=== PATIENT | female | born 1985 | race Caucasian/White ===

== ENCOUNTER 2018-04-28 14:20 | Emergency (ER) | payer OTHER, SELFPAY ==
[2018-04-28 14:21] VITALS: BP 118/65; PULSE 78; RESP 16; TEMP 36.6; O2SAT 100
[2018-04-28 15:22] LABS: Mucous, Urine 0 SEEN /hpf (<or=2+); Red Blood Cells-Urine 0 SEEN /hpf (0-5); White Blood Cells 0 SEEN /hpf (0-5)
[2018-04-28 15:25] LABS: Color, Urine Yellow (Yellow); Glucose, Dipstick Normal (Normal); Ketone-Dipstick Negative (Negative); Leukocyte Esterase-Dipstick Negative /ul (Negative); Nitrite-Dipstick Negative (Negative); Occult Blood-Urine Negative /ul (Negative); Protein-Dipstick 15 mg/dl (Negative); Urine Bilirubin Dipstick Negative (Negative); Urine Clarity Clear (Clear); Urine Urobilinogen Normal (Normal)
[2018-04-28 15:39] LABS: Bacteria RARE /hpf (None Seen); Squamous Epithelial Cells - UA 0-5 SEEN /hpf (5-10)
--- NOTE | 2018-04-28 16:03 | US_ITS ---
STUDY: FIRST TRIMESTER OBSTETRICAL ULTRASOUND REASON FOR EXAM: Female, 32 years old. Lower pelvic pain LMP: March 08, 2018. TECHNIQUE: Transabdominal and Transvaginal TECHNICAL QUALITY: Adequate. PRIOR ULTRASOUND: None. FINDINGS: There is visualization of a single gestational sac in a normal intrauterine position. The mean sac diameter (MSD) measures 2.8 cm, indicating an estimated gestational age (EGA) of 8 weeks, 1 days. The gestational sac shape is within normal limits. There is a visualized yolk sac. The yolk sac measures 0.4 cm. The placenta is non-visualized. There is visualization of a live embryo. The crown-rump length (CRL) measures 1.3 cm, indicating an estimated gestational age (EGA) of 7 weeks, 4 days. There is demonstrated cardiac activity with a heart rate of 149 bpm. The estimated gestation age (EGA) by LMP is 7 weeks, 2 days. The estimated date of delivery (RANI) by LMP is December 13, 2018. The estimated gestation age (EGA) by US is 7 weeks, 6 days. The estimated date of delivery (RANI) by US is December 09, 2018. The uterus measures 8.8 x 6.1 x 4.5 cm. There is 1.2 cm hypoechoic region consistent with subchorionic hemorrhage. There is no demonstrated uterine fibroid. The cervix is closed. The right ovary measures 4.8 x 3.6 x 3.1 cm. There is 2.9 cm right ovarian cyst. There is no visualized right adnexal mass or complex lesion. The left ovary is nonvisualized. There is no fluid in the cul de sac. US/Transvaginal w/Preg US IMPRESSION: Single intrauterine gestation 7 weeks 6 days with estimated due date December 09, 2018. Right adnexal cyst. Electronically Signed: Bryce Bal MD at 18:09 EST , Service support ,
[2018-04-28 16:46] LABS: Hematocrit 40.4 % (37-47); Hemoglobin 13.9 g/dl (12.0-15.0)
--- NOTE | 2018-04-28 18:30 | ED.VISSUMM ---
- ER Visit Summary Date of Service: 04/28/18 Chief Complaint: Pelvic pain History of Present Illness: The patient is a 32 F who is presently 7 weeks . She states that over this weekend she did have occasional pelvic pain that was short-lived. This morning she had about 2 hours of severe pelvic pain. She denies any bleeding. She notes no radiation of pain. She notes last week she had a brief URI. No diarrhea or constipation. No fevers. No leakage of fluid. No significant discharge. Physical Examination: Afebrile vital signs are stable Gen: Well-nourished well-developed Head: Normocephalic atraumatic Eyes: Perrl EOMI ENT: TMs clear no rhinorrhea moist mucous membranes Neck: Supple no lymphadenopathy no JVD nontender CVS: Regular rate rhythm no murmurs normal S1-S2 Respiratory: No distress clear to auscultation bilaterally chest nontender Abdomen: Soft nontender nondistended normal bowel sounds no masses Back: Nontender Extremity: Nontender no edema Skin: Normal color no rash Neuro: alert orientated ?3 CN II-XII intact normal strength sensation reflexes gait cerebellar Psych: Normal affect normal mood Test Results: Hemoglobin 13.9. Quantitative hCG 94,000. AB Rh is a negative. Urinalysis is normal. Pelvic ultrasound single live intrauterine . There is a right ovarian cyst 2.9 cm. Emergency Department Course and Treatment: Patient will be discharged home to follow with her FIELD SERVICE SPECIALIST. She has an appointment tomorrow. Return if worsening or concerns. She is to rest. Impression: 1. First trimester pelvic pain This note was generated with [employer] dictation software. It may contain incorrect words, spelling, and punctuation that were not noted in review of the chart prior to signing ED Disposition - Plan for ED Patient: Disposition: Home or Assisted Living Chief Complaint: Abd Pain Instructions: : Your First Trimester Changes Referrals: Radha Naranjo MD [STAFF PHYSICIAN] - Keep Ramon appointment
[2018-04-28 18:41] VITALS: BP 116/83
== END 2018-04-28 18:41 | disposition home or self-care (01) ==
PROVIDERS: Emergency Provider Emergency Medicine; Family Provider Family Medicine; PCP Family Medicine
DX: O26.891 Other specified pregnancy related conditions, first trimester (principal); R10.2 Pelvic and perineal pain; O34.81 Maternal care for other abnormalities of pelvic organs, first trimester; N83.201 Unspecified ovarian cyst, right side; Z3A.01 Less than 8 weeks gestation of pregnancy
CPT/HCPCS: 76817; 81001; 84702; 85014; 85018; 86900; 99283; A4216

== ENCOUNTER → 2018-05-08 15:17 | Outpatient (CLI) | payer OTHER, SELFPAY ==
[2018-05-08 19:01] LABS: Chlamydia Trachomatis by PCR Negative (Negative); Neisserai gonorrhoeae by PCR Negative (Negative); Probe Check PASS; Sample Adequacy Control PASS; Specimen Processing Control PASS
[2018-05-15 08:32] LABS: HPV Reflexed? NOT INDICATED
== END ==
PROVIDERS: Visit Provider Obstetrics & Gynecology
DX: Z12.4 Encounter for screening for malignant neoplasm of cervix (principal)
CPT/HCPCS: 87491; 87591; 87624; 88175; G0145

== ENCOUNTER → 2018-05-29 14:25 | Outpatient (CLI) | payer OTHER, SELFPAY ==
[2018-05-29 15:38] LABS: Color, Urine Yellow (Yellow); Glucose, Dipstick Normal (Normal); Ketone-Dipstick Negative (Negative); Leukocyte Esterase-Dipstick Negative /ul (Negative); Nitrite-Dipstick Negative (Negative); Occult Blood-Urine Negative /ul (Negative); Protein-Dipstick Negative (Negative); Urine Bilirubin Dipstick Negative (Negative); Urine Clarity Clear (Clear); Urine Urobilinogen Normal (Normal)
[2018-05-29 15:41] LABS: Absolute Lymphocyte Count 1.15 X10^3/ul (0.83-4.51); Hemoglobin 12.6 g/dl (12.0-15.0); Lymphocyte # 1.15 X10^3/ul (4.0); Lymphocyte % 17.1 % (19-41); Mean Corp Hgb Conc 34.1 g/gl (32-36); Mean Corpuscular Hgb 33.1 pg (27.0-32.0); Mean Corpuscular Volume 97.1 fL (81-99); Mean Platelet Vol. 11.7 fl (6.2-12.0); Monocyte% 8.9 % (0-10); Neutrophil # 4.97 X10^3/uL (2.7-7.7); Neutrophil % 73.9 % (47-70); POSITIVE COUNT NO; POSITIVE DIFFERENTIAL NO; POSITIVE MORPHOLOGY NO; Platelet Count 233 K/mm3 (150-450); RBC Distribution Width CV 12.9 % (11.6-14.6); RBC Distribution Width SD 45.3 fl (35.1-43.9); Red Blood Count 3.81 M/mm3 (4.2-5.4); White Blood Count 6.7 K/mm3 (4.4-11.0)
[2018-05-29 16:04] LABS: Thyroid Stim Hormone (TSH) 2.28 uIU/mL (0.358-3.74)
[2018-05-29 16:40] LABS: HIV - WCH Non-Reactive (Nonreactive)
[2018-05-30 02:33] LABS: Prenatal RPR NONREACTIVE (NONREACTIVE)
[2018-06-01 09:58] LABS: HEPATITIS B SURFACE AG Negative (Negative); Hep C Antibodies <0.1 s/co ratio (0.0-0.9)
== END ==
PROVIDERS: Visit Provider Obstetrics & Gynecology
DX: Z34.81 Encounter for supervision of other normal pregnancy, first trimester (principal)
CPT/HCPCS: 36415; 81002; 84443; 85025; 86703; 86762; 86803; 87340

== ENCOUNTER → 2018-09-18 13:34 | Outpatient (CLI) | payer OTHER, SELFPAY ==
[2018-09-18 14:51] LABS: Glucose Challenge Gest 1H 50g 133 mg/dL (70-140)
[2018-09-18 14:58] LABS: Hematocrit 37.6 % (37-47); Hemoglobin 12.2 g/dl (12.0-15.0); Mean Corp Hgb Conc 32.4 g/gl (32-36); Mean Corpuscular Hgb 33.6 pg (27.0-32.0); Mean Corpuscular Volume 103.6 fL (81-99); Mean Platelet Vol. 11.8 fl (6.2-12.0); Platelet Count 243 K/mm3 (150-450); RBC Distribution Width SD 48.1 fl (35.1-43.9); Red Blood Count 3.63 M/mm3 (4.2-5.4); Scan Indicated on CBC? Y/N NO; White Blood Count 8.3 K/mm3 (4.4-11.0)
== END ==
PROVIDERS: Visit Provider Obstetrics & Gynecology
DX: Z34.83 Encounter for supervision of other normal pregnancy, third trimester (principal)
CPT/HCPCS: 36415; 82950; 85027; 86850

== ENCOUNTER → 2018-11-19 13:34 | Outpatient (CLI) | payer OTHER, SELFPAY | PROVIDERS: Visit Provider Obstetrics & Gynecology | DX: Z36.85 Encounter for antenatal screening for Streptococcus B (principal) | CPT/HCPCS: 87081 ==

== ENCOUNTER 2018-12-14 06:10 | Inpatient (IN) | payer SELFPAY, OTHER ==
[2018-12-14 06:45] VITALS: BMI 24.2
[2018-12-14] MEDS: 0.9% Saline Lock 10 ML Syringe IV (07:20)
[2018-12-14 07:44] LABS: Absolute Lymphocyte Count 1.01 X10^3/ul (0.83-4.51); Absolute Neutrophil Count 9.2 X10^3/uL (2.0-7.7); Basophil# 0.02 X10^3/uL; Basophil% 0.2 % (0-1); Eosinophil# 0.07 X10^3/uL; Eosinophils% 0.6 % (0-5); Hematocrit 36.2 % (37-47); Hemoglobin 12.4 g/dl (12.0-15.0); Lymphocyte # 1.01 X10^3/ul (4.0); Lymphocyte % 8.9 % (19-41); Mean Corp Hgb Conc 34.3 g/gl (32-36); Mean Corpuscular Hgb 33.9 pg (27.0-32.0); Mean Corpuscular Volume 98.9 fL (81-99); Mean Platelet Vol. 13.2 fl (6.2-12.0); Monocyte# 0.97 X10^3/uL; Monocyte% 8.6 % (0-10); Neutrophil # 9.19 X10^3/uL (2.7-7.7); Neutrophil % 81.3 % (47-70); Platelet Count 182 K/mm3 (150-450); RBC Distribution Width CV 13.5 % (11.6-14.6); RBC Distribution Width SD 48.6 fl (35.1-43.9); Red Blood Count 3.66 M/mm3 (4.2-5.4); White Blood Count 11.3 K/mm3 (4.4-11.0)
[2018-12-14 07:46] LABS: Differential Indicated SCAN CRITERIA MET; POSITIVE COUNT NO; POSITIVE DIFFERENTIAL NO; POSITIVE MORPHOLOGY YES
[2018-12-14] MEDS: Lactated Ringers 1,000 ML 50 ML IV (15:00)
--- NOTE | 2018-12-14 16:12 | PCM.OPRPT ---
Problem List (1) SROM (spontaneous rupture of membranes) Status: Acute (2) Rh negative state in antepartum period Status: Acute Vaginal Delivery Maternal Presentation: Active Labor, Spontaneous Rupture of Membranes 40w5d srom Amniotic Membrane Rupture Type: Spontaneous at home Amniotic Fluid Description: Clear Final RANI: 12/09/18 Gestational age: 40 Weeks and 6 Days Date of Procedure: 12/14/18 Pre-Operative Diagnosis: srom Post-Operative Diagnosis: same Surgery/ Procedure Performed: Spontaneous Vaginal Delivery Type of Anesthesia: None Description of Procedure: Patient began pushing and delivered the head in the NIKOLAS presentation. The head was delivered atraumatically and a loose nuchal cord ?1 was identified and easily reduced over the 's head. The anterior and posterior shoulders delivered without complication followed by the rest of the infant and the infant was placed on the maternal abdomen. Delayed cord clamping was employed for approximately 60 seconds. Cord was clamped and cut and gentle traction was applied to the cord and the placenta delivered spontaneously immediately following it was noted to be intact with three-vessel cord. The perineum and vagina were inspected and 2nd degree perineal laceration was injected with lidocaine and repiared in the usual fashion. EBL was 300 cc. Patient and infant tolerated delivery well. Presentation: NIKOLAS Placental Delivery Description: Spontaneous Placenta Disposition: [facility] Cord Vessel Description: 3 Vessels Cord Entanglement: Around neck x 1, loose Estimated Blood Loss: 300 Infant A gender: Male Episiotomy Description: None Laceration: Perineal Extension/lac, 2nd degree Medications given after delivery: IV Pitocin Complications: None
[2018-12-14] MEDS: Oxytocin 30 units/NS 500 ml 30 UNITS/500 ML IV.SOLN 334 UNITS IV (17:14)
[2018-12-14] MEDS: Oxytocin 30 units/NS 500 ml 30 UNITS/500 ML IV.SOLN 167 UNITS IV (17:44)
[2018-12-15 00:10] VITALS: BP 107/73; PULSE 63; RESP 17; TEMP 36.5
[2018-12-15 03:55] VITALS: BP 114/70; PULSE 64; RESP 17; TEMP 36.2
--- NOTE | 2018-12-15 06:40 | DCINST_ITS ---
Discharge Diet: No Restrictions Discharge Activity: Return to Normal Activity, May not drive while taking narcotic pain medications., May Shower May resume sexual activity in: 4-6 weeks Call your doctor if your incision/area has: Continuous Slow Oozing, Sudden Increased Bleeding, Increased Pain/ Swelling, Increased Redness, Foul Smelling Discharge Additional Instructions: If you experience any of the following, contact your healthcare provider. * Bleeding that soaks a pad every hour for 2 hours * Fever 100.4 or higher * Unrelieved incision or abdominal pain * Swelling, redness, discharge or bleeding from your incision or episiotomy site * Your incision begins to separate * Problems urinating (including inability to urinate or burning while urinating). * Visual changes * Severe headache * Flu-like symptoms * Pain or redness in one of both of your breasts * Pain, warmth, tenderness or swelling in your legs, especially the calf area * Frequent nausea and vomiting * Symptoms of depression or anxiety If you experience any of the following, call 911 or go to the nearest Emergency Room. * Chest pain * Problems breathing * Seizure activity * Partial or complete paralysis of a body part, slurred speech, weakness or drooping of the face, or a sudden inability to walk or hold your balance Allergies/Adverse Reactions: Allergies No Known Allergies Allergy (Verified 04/28/18 14:23) Medications to take at Discharge Vits [Prenatabs FA] 1 tab PO DAILY 12/14/18 Please Follow Up With: Chastity Oconnor MD - [phone] When: Call to make an appointment with your doctor in 6 weeks. If you had elevated Blood pressure or 4th degree laceration you will need to be seen in 2 weeks. Test Results: Test results from this visit will be discussed in further detail at your follow- up appointment, if applicable.
--- NOTE | 2018-12-15 06:40 | PCM.DCVAG ---
Discharge Diet: No Restrictions Discharge Activity: Return to Normal Activity, May not drive while taking narcotic pain medications., May Shower May resume sexual activity in: 4-6 weeks Call your doctor if your incision/area has: Continuous Slow Oozing, Sudden Increased Bleeding, Increased Pain/ Swelling, Increased Redness, Foul Smelling Discharge Additional Instructions: If you experience any of the following, contact your healthcare provider. Bleeding that soaks a pad every hour for 2 hours Fever 100.4 or higher Unrelieved incision or abdominal pain Swelling, redness, discharge or bleeding from your incision or episiotomy site Your incision begins to separate Problems urinating (including inability to urinate or burning while urinating). Visual changes Severe headache Flu-like symptoms Pain or redness in one of both of your breasts Pain, warmth, tenderness or swelling in your legs, especially the calf area Frequent nausea and vomiting Symptoms of depression or anxiety If you experience any of the following, call 911 or go to the nearest Emergency Room. Chest pain Problems breathing Seizure activity Partial or complete paralysis of a body part, slurred speech, weakness or drooping of the face, or a sudden inability to walk or hold your balance Allergies/Adverse Reactions: Allergies No Known Allergies Allergy (Verified 04/28/18 14:23) Medications to take at Discharge Vits [Prenatabs FA] 1 tab PO DAILY 12/14/18 Please Follow Up With: Chastity Oconnor MD - [phone] When: Call to make an appointment with your doctor in 6 weeks. If you had elevated Blood pressure or 4th degree laceration you will need to be seen in 2 weeks. Test Results: Test results from this visit will be discussed in further detail at your follow-up appointment, if applicable.
--- NOTE | 2018-12-15 06:41 | PCM.PN.OB ---
Patient Problems: Active and Suspected Problems SROM (spontaneous rupture of membranes) (Acute) Rh negative state in antepartum period (Acute) Subjective: doing well no complaints pain controlled no CP SOB N V ambulating well tolerating po lochia moderate, going well - Physical Exam General: Alert, Oriented x3 Vital Signs Temp Pulse Resp BP 97.7 F L 63 17 107/73 12/15/18 00:10 12/15/18 00:10 12/15/18 00:10 12/15/18 00:10 Oxygen Delivery Method Room Air Weight: 141 lb Body Mass Index (BMI) 24.2 Intake and Output for Last 24 Hours 12/13/18 12/14/18 12/15/18 23:59 23:59 23:59 Output Total 225 / 225 Balance -225 / -225 Laboratory Tests Past 24 Hrs 12/14/18 12/14/18 07:20 07:20 WBC 11.3 H RBC 3.66 L Hgb 12.4 Hct 36.2 L MCV 98.9 MCH 33.9 H MCHC 34.3 RDW 13.5 RDW Differential 48.6 H Plt Count 182 MPV 13.2 H Immature Gran % (Auto) 0.400 Neut % (Auto) 81.3 H Lymph % (Auto) 8.9 L Mcdonald % (Auto) 8.6 Eos % (Auto) 0.6 Baso % (Auto) 0.2 Absolute Neuts (auto) 9.2 H Absolute Lymphs (auto) 1.01 Total Counted Not Reportable Blood Type A NEGATIVE Antibody Screen NEGATIVE Medical Necessity - Tobacco Use Smoking Status: Never smoker Assessment/Plan All Active Problems SROM (spontaneous rupture of membranes) (Acute) Rh negative state in antepartum period (Acute) s/p PPD # 1 1. routine post delivery care 2. breast feeding- support given 3. rh negative
[2018-12-15 08:11] VITALS: BP 110/69; PULSE 64; RESP 16; TEMP 36.6
--- NOTE | 2018-12-15 08:11 | NURSING ---
pt unable to empty bladder completely per pt report. upon fundal check bladder appeared distended. pt straight catheterized for 1550 ml concentrated urine. abdomen no longer distended and fundus U/3
[2018-12-15 11:38] VITALS: BP 100/64; PULSE 87; RESP 16; TEMP 36.3; O2SAT 97
[2018-12-15 14:00] VITALS: BP 100/64; PULSE 87; RESP 16; TEMP 36.3; O2SAT 97
[2018-12-15] MEDS: Acetaminophen 500 MG Tablet 1000 MG PO (18:14)
--- NOTE | 2018-12-15 18:18 | NURSING ---
bladder scanned for 864 cc. pt up to the bathroom,voided 200cc.
--- NOTE | 2018-12-15 19:09 | NURSING ---
pt str cath for 800cc, pt tolerated this well.
[2018-12-15 19:25] VITALS: BP 95/63; PULSE 78; RESP 17; TEMP 36.2
[2018-12-16 01:35] VITALS: BP 100/65; PULSE 65; RESP 16; TEMP 36.1
--- NOTE | 2018-12-16 08:15 | PCM.PN.OB ---
Patient Problems: Active and Suspected Problems SROM (spontaneous rupture of membranes) (Acute) Rh negative state in antepartum period (Acute) Subjective: Patient without complaints. Minimal vaginal bleeding reported. Breast-feeding going well. - Physical Exam Vital Signs Temp Pulse Resp BP Pulse Ox 96.9 F L 65 16 100/65 97 12/16/18 01:35 12/16/18 01:35 12/16/18 01:35 12/16/18 01:35 12/15/18 14:00 Oxygen Delivery Method Room Air Weight: 141 lb Body Mass Index (BMI) 24.2 Intake and Output for Last 24 Hours 12/14/18 12/15/18 12/16/18 23:59 23:59 23:59 Output Total 225 / 225 200 / 200 800 / 800 Balance -225 / -225 -200 / -200 -800 / -800 Medical Necessity - Tobacco Use Smoking Status: Never smoker Assessment/Plan All Active Problems SROM (spontaneous rupture of membranes) (Acute) Rh negative state in antepartum period (Acute) Doing well day #2 status post routine spontaneous vaginal delivery. Will release to home with routine instructions.
--- NOTE | 2018-12-16 08:17 | DCINST_ITS ---
Discharge Diet: No Restrictions Discharge Activity: Return to Normal Activity, May not drive while taking narcotic pain medications., May Shower May resume sexual activity in: 4-6 weeks Additional Activity Instructions:: Nothing in the vagina for 4-6 weeks. You may return to work/school in 6 weeks. Call your doctor if your incision/area has: Continuous Slow Oozing, Sudden Increased Bleeding, Increased Pain/ Swelling, Increased Redness, Foul Smelling Discharge Call your doctor if you observe: Inability to urinate, Inability to have a bowel movement, Using more than one pad per hour Additional Instructions: If you experience any of the following, contact your healthcare provider. * Bleeding that soaks a pad every hour for 2 hours * Fever 100.4 or higher * Unrelieved incision or abdominal pain * Swelling, redness, discharge or bleeding from your incision or episiotomy site * Your incision begins to separate * Problems urinating (including inability to urinate or burning while ur inating). * Visual changes * Severe headache * Flu-like symptoms * Pain or redness in one of both of your breasts * Pain, warmth, tenderness or swelling in your legs, especially the calf area * Frequent nausea and vomiting * Symptoms of depression or anxiety If you experience any of the following, call 911 or go to the nearest Emergency Room. * Chest pain * Problems breathing * Seizure activity * Partial or complete paralysis of a body part, slurred speech, weakness or drooping of the face, or a sudden inability to walk or hold your balance Allergies/Adverse Reactions: Allergies No Known Allergies Allergy (Verified 04/28/18 14:23) Medications to take at Discharge Vits [Prenatabs FA] 1 tab PO DAILY 12/14/18 Please Follow Up With: Perm Heredia MD - [phone] When: Call to make an appointment with your doctor in 6 weeks. Test Results: Test results from this visit will be discussed in further detail at your follow- up appointment, if applicable.
--- NOTE | 2018-12-16 08:17 | PCM.DCVAG ---
Discharge Diet: No Restrictions Discharge Activity: Return to Normal Activity, May not drive while taking narcotic pain medications., May Shower May resume sexual activity in: 4-6 weeks Additional Activity Instructions:: Nothing in the vagina for 4-6 weeks. You may return to work/school in 6 weeks. Call your doctor if your incision/area has: Continuous Slow Oozing, Sudden Increased Bleeding, Increased Pain/ Swelling, Increased Redness, Foul Smelling Discharge Call your doctor if you observe: Inability to urinate, Inability to have a bowel movement, Using more than one pad per hour Additional Instructions: If you experience any of the following, contact your healthcare provider. Bleeding that soaks a pad every hour for 2 hours Fever 100.4 or higher Unrelieved incision or abdominal pain Swelling, redness, discharge or bleeding from your incision or episiotomy site Your incision begins to separate Problems urinating (including inability to urinate or burning while urinating). Visual changes Severe headache Flu-like symptoms Pain or redness in one of both of your breasts Pain, warmth, tenderness or swelling in your legs, especially the calf area Frequent nausea and vomiting Symptoms of depression or anxiety If you experience any of the following, call 911 or go to the nearest Emergency Room. Chest pain Problems breathing Seizure activity Partial or complete paralysis of a body part, slurred speech, weakness or drooping of the face, or a sudden inability to walk or hold your balance Allergies/Adverse Reactions: Allergies No Known Allergies Allergy (Verified 04/28/18 14:23) Medications to take at Discharge Vits [Prenatabs FA] 1 tab PO DAILY 12/14/18 Please Follow Up With: Prem Heredia MD - [phone] When: Call to make an appointment with your doctor in 6 weeks. Test Results: Test results from this visit will be discussed in further detail at your follow-up appointment, if applicable.
[2018-12-16 08:25] VITALS: BP 107/69; PULSE 65; RESP 16; TEMP 36.3; O2SAT 98
[2018-12-16 08:49] VITALS: BP 107/69; PULSE 65; RESP 16; TEMP 36.3; O2SAT 98
[2018-12-16] MEDS: Naproxen 250 MG Tablet 500 MG PO (10:00)
== END 2018-12-16 10:45 | disposition home or self-care (01) | DRG 806 ==
PROVIDERS: Admitting Provider Obstetrics & Gynecology; Referring Provider Obstetrics & Gynecology; Visit Provider Obstetrics & Gynecology
DX: O42.02 Full-term premature rupture of membranes, onset of labor within 24 hours of rupture (principal); O36.0130 Maternal care for anti-D [Rh] antibodies, third trimester, not applicable or unspecified; Z37.0 Single live birth; O70.1 Second degree perineal laceration during delivery; O69.81X0 Labor and delivery complicated by cord around neck, without compression, not applicable or unspecified; Z3A.40 40 weeks gestation of pregnancy
CPT/HCPCS: 59050; 85025; 86850; 86900; 99218; J7120; A4216; G0378

== ENCOUNTER → 2018-12-26 11:17 | Outpatient (CLI) | payer OTHER, SELFPAY ==
[2018-12-14 06:45] VITALS: BMI 24.2
== END ==
PROVIDERS: Visit Provider Obstetrics & Gynecology
DX: N39.0 Urinary tract infection, site not specified (principal)
CPT/HCPCS: 87086; 87088; 87186

== ENCOUNTER → 2020-08-10 14:00 | Outpatient (CLI) | payer OTHER, SELFPAY ==
[2020-08-10 14:00] VITALS: BMI 24.2
[2020-08-10 15:05] LABS: Color, Urine Yellow (Yellow); Glucose, Dipstick Normal (Normal); Ketone-Dipstick Negative (Negative); Leukocyte Esterase-Dipstick Negative /ul (Negative); Nitrite-Dipstick Negative (Negative); Occult Blood-Urine Negative /ul (Negative); Protein-Dipstick Negative (Negative); Urine Bilirubin Dipstick Negative (Negative); Urine Clarity Sl. Cloudy (Clear); Urine Urobilinogen Normal (Normal); Urine pH 6.5 (5.0 - 8.0)
[2020-08-10 15:07] LABS: Absolute Lymphocyte Count 0.98 X10^3/uL (0.83-4.51); Absolute Neutrophil Count 6.8 X10^3/uL (2.0-7.7); Basophil# 0.01 X10^3/uL; Basophil% 0.1 % (0-1); Hematocrit 37.7 % (37-47); Hemoglobin 12.5 g/dL (12.0-15.0); Lymphocyte # 0.98 X10^3/ul (4.0); Lymphocyte % 11.7 % (19-41); Mean Corp Hgb Conc 33.2 g/dL (32-36); Mean Corpuscular Hgb 32.6 pg (27.0-32.0); Mean Corpuscular Volume 98.2 fL (81-99); Mean Platelet Vol. 12.3 fl (6.2-12.0); Monocyte% 7.1 % (0-10); NRBC Flagged by Analyzer 0 % (0-5); Neutrophil # 6.77 X10^3/uL (2.7-7.7); Neutrophil % 80.6 % (47-70); Platelet Count 254 K/mm3 (150-450); RBC Distribution Width CV 13.1 % (11.6-14.6); RBC Distribution Width SD 46.6 fl (35.1-43.9); Red Blood Count 3.84 M/mm3 (4.2-5.4); White Blood Count 8.4 K/mm3 (4.4-11.0)
[2020-08-10 16:04] LABS: HIV - WCH Non-Reactive (Nonreactive); Hepatitis B Surface Antigen Non-Reactive (Nonreactive); Hepatitis C Antibody Non-Reactive (Nonreactive); Rubella IgG Reactive (Nonreactive)
[2020-08-11 01:10] LABS: Prenatal RPR NONREACTIVE (NONREACTIVE)
[2020-08-13 03:06] LABS: Chlamydia By Nucleic Acid AMP Negative (Negative)
[2020-08-13 08:57] LABS: Gonococcus By Nucleic Acid AMP Negative (Negative)
[2020-08-14 00:29] LABS: HPV Reflexed? NOT INDICATED
== END ==
PROVIDERS: Visit Provider Obstetrics & Gynecology
DX: Z32.01 Encounter for pregnancy test, result positive (principal); Z12.4 Encounter for screening for malignant neoplasm of cervix; Z11.3 Encounter for screening for infections with a predominantly sexual mode of transmission
CPT/HCPCS: 36415; 81002; 85025; 86703; 86762; 86803; 87086; 87088; 87340; 87491; 87591; 88175; G0145

== ENCOUNTER → 2020-11-30 09:37 | Outpatient (CLI) | payer OTHER, SELFPAY ==
[2020-08-10 14:00] VITALS: BMI 24.2
[2020-11-30 09:53] LABS: Hematocrit 32.4 % (37-47); Hemoglobin 10.9 g/dL (12.0-15.0); Mean Corp Hgb Conc 33.6 g/dL (32-36); Mean Corpuscular Hgb 33.7 pg (27.0-32.0); Mean Corpuscular Volume 100.3 fL (81-99); Mean Platelet Vol. 10.9 fl (6.2-12.0); Platelet Count 208 K/mm3 (150-450); RBC Distribution Width CV 13.3 % (11.6-14.6); RBC Distribution Width SD 49.1 fl (35.1-43.9); Red Blood Count 3.23 M/mm3 (4.2-5.4); White Blood Count 8.4 K/mm3 (4.4-11.0)
[2020-11-30 10:23] LABS: Glucose Challenge Gest 1H 50g 119 mg/dL (70-140)
== END ==
PROVIDERS: Visit Provider Obstetrics & Gynecology
DX: Z34.83 Encounter for supervision of other normal pregnancy, third trimester (principal)
CPT/HCPCS: 36415; 82950; 85027; 86850

== ENCOUNTER → 2021-01-16 | Outpatient (CLI) | payer OTHER, SELFPAY ==
[2020-08-10 14:00] VITALS: BMI 24.2
== END | disposition home or self-care (01) ==
LOC: LABSPEC 10:26
PROVIDERS: Visit Provider Obstetrics & Gynecology
DX: Z36.85 Encounter for antenatal screening for Streptococcus B (principal)
CPT/HCPCS: 87081

== ENCOUNTER 2021-01-29 06:41 | Inpatient (IN) | payer SELFPAY, OTHER ==
[2020-08-10 14:00] VITALS: BMI 24.2
[2021-01-29] VITALS (54 sets, daily range): BP systolic 97–115; BP diastolic 56–75; PULSE 71–103; RESP 16; TEMP 36.3–37.2; O2SAT 93–100; BMI 23.8
[2021-01-29 06:39] LABS: ROM Internal Control Test YES-OK TO RESULT pt. (Internal QC); ROM Patient Test POSITIVE (Negative)
[2021-01-29 07:11] LABS: Absolute Lymphocyte Count 0.77 X10^3/uL (0.83-4.51); Absolute Neutrophil Count 10.2 X10^3/uL (2.0-7.7); Basophil# 0.03 X10^3/uL; Basophil% 0.3 % (0-1); Eosinophil# 0.01 X10^3/uL; Eosinophils% 0.1 % (0-5); Hematocrit 36.6 % (37-47); Hemoglobin 12.2 g/dL (12.0-15.0); Lymphocyte # 0.77 X10^3/ul (0.83-4.51); Lymphocyte % 6.6 % (19-41); Mean Corp Hgb Conc 33.3 g/dL (32-36); Mean Corpuscular Hgb 34.2 pg (27.0-32.0); Mean Corpuscular Volume 102.5 fL (81-99); Mean Platelet Vol. 11.9 fl (6.2-12.0); Monocyte# 0.61 X10^3/uL; Monocyte% 5.2 % (0-10); NRBC Flagged by Analyzer 0 % (0-5); Neutrophil # 10.18 X10^3/uL (2.7-7.7); Neutrophil % 87.1 % (47-70); Platelet Count 167 K/mm3 (150-450); RBC Distribution Width CV 13.9 % (11.6-14.6); RBC Distribution Width SD 52.2 fl (35.1-43.9); Red Blood Count 3.57 M/mm3 (4.2-5.4); White Blood Count 11.7 K/mm3 (4.4-11.0)
--- NOTE | 2021-01-29 11:12 | PCM.HP.BLA ---
History and Physical Date of Admission: 01/29/21 Chief complaint: Leakage of fluid History present illness: 35-year-old G2, P1 at 38 weeks 0 days with RANI 02/12/2021 by LMP arrives with leakage of clear fluid since today. Denies headache, visual changes, chest pain, shortness of breath, nausea vomiting, right upper quadrant pain. Patient states good movement. Obstetric history: G1: 40-week male 12/14/2018 G2: Current Past medical history: None Medications: vitamin Past surgical history: [place] teeth extraction Allergies: No known drug allergies Social history: Denies smoking, alcohol use, drug use Family history: Denies history DVT or PE Review of systems: Besides above pertinent positives a full review systems was performed and found to be negative Physical exam: Vitals: Blood pressure 108/60 pulse 83 temp 97.9 Fahrenheit SpO2 96% on room air General: Normal-appearing no acute distress HEENT: Normocephalic/atraumatic no cervical lymphadenopathy Cardiac/respiratory: No use of accessory muscles, nonlabored breathing Abdomen: Soft, nontender, gravid Extremities: No peripheral edema normal peripheral pulses Psych: Normal affect normal demeanor nonpressured speech Labs: White blood cell count 11.7, hemoglobin 12.2, hematocrit 36.6%, platelets 167. ROM positive. Blood type A- antibody negative Assessment plan: 35-year-old G2, P1 at 38 weeks and 0 days with SROM Admit labor and delivery See EFM GBS negative Routine orders Anesthesia to see
[2021-01-29] MEDS: Lactated Ringers 1,000 ML 200 ML IV (14:12)
--- NOTE | 2021-01-29 16:28 | EX.PCM.OBRPT ---
Vaginal Delivery Findings Description of Procedure: Normal spontaneous vaginal delivery of a viable male , vertex NIKOLAS. Head and shoulders delivered with ease. Cord cut clamped. Baby handed off to patient. Placenta delivered via cord traction and fundal massage. First-degree midline perineal laceration noted and repaired in typical fashion. EBL 250 cc Apgars 8/9
[2021-01-30 00:40] VITALS: BP 93/45; PULSE 71; RESP 16; TEMP 36.7
[2021-01-30 03:38] VITALS: BP 97/61; PULSE 71; RESP 16; TEMP 36.5
--- NOTE | 2021-01-30 07:27 | PCM.DC ---
Discharge Instructions Diet Discharge Diet: No restrictions Activity Discharge Activity: Return to Normal Activity, May Drive and May Shower May resume sexual activity in: 4-6 weeks Weight Bearing Status: Weight bearing as tolerated Dressing / Incision Call your doctor if your incision/area has: Continuous Slow Oozing and Foul Smelling Discharge Call your doctor if you observe: Fever of 101 or Higher, Shortness of breath and Chest pain Follow Up Care Please Follow Up With: Tiago Carson MD When: 2-week telehealth, 4 to 6-week Test Results: Test results from this visit will be discussed in further detail at your follow-up appointment, if applicable. Discharge Plan Admission Admit Date/Time: 01/29/21 06:41 Attending Provider: Prem Heredia Discharge Orders/Prescriptions Prescriptions: No Action vit,[id number] 1 TABLET tablet 1 tab PO DAILY RF: 0 Disposition Discharge Orders: Discharge Patient (Routine); Ordered 01/30/21 Ordered By: Dr. Tiago Carson
--- NOTE | 2021-01-30 07:28 | PCM.PN.OB ---
Subjective Subjective No overnight complaints. Pain well controlled. Objective Data Objective Data Vital Signs: Vital Signs Temp Pulse Resp BP Pulse Ox 97.7 F L 71 16 97/61 98 01/30/21 03:38 01/30/21 03:38 01/30/21 03:38 01/30/21 03:38 01/29/21 18:24 Oxygen Delivery Method Room Air Weight: 147 lb 6.4 oz Body Mass Index (BMI) 23.8 Intake & Output: Intake and Output for Last 24 Hours 01/28/21 01/29/21 01/30/21 23:59 23:59 23:59 Intake Total 1013.33 / 1013.33 Output Total 900 / 900 Balance 113.33 / 113.33 Lab / Micro Data Result Diagrams: 01/29/21 06:50 Labs: Laboratory Results - last 24 hr 01/29/21 06:50: Blood Type A NEGATIVE, Antibody Screen NEGATIVE Micro: Microbiology 01/29/21 07:15 Mucosa - Nose SARS-CoV-2 Antigen (Rapid) - Final Physical Exam Const alert, oriented x3, no apparent distress, average body habitus, healthy appearing and well nourished HEENT normocephalic and moist oral mucous membranes Face and Sinus: normal facial exam Neck full ROM Resp normal respiratory effort, no retractions and no use of accessory muscles Extremity normal to inspection, full ROM and no clubbing, cyanosis or edema Psych mental status grossly normal, affect normal, speech normal and activity/motor behavior normal Assessment & Plan (1) : PLAN: day 1. Breast-feeding. Pain well controlled. 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
[2021-01-30 08:17] VITALS: BP 89/61; PULSE 69; RESP 16; TEMP 36.8
[2021-01-30 11:09] VITALS: BP 96/59; PULSE 73; RESP 16; TEMP 36.5
[2021-01-30 16:59] VITALS: BP 98/62; PULSE 70; RESP 16; TEMP 36.3
== END 2021-01-30 18:30 | disposition home or self-care (01) | DRG 807 ==
LOC: WPOUT 07:13 → WP 07:13
PROVIDERS: Obstetrics & Gynecology; Admitting Provider Obstetrics & Gynecology; Visit Provider Obstetrics & Gynecology
DX: O42.02 Full-term premature rupture of membranes, onset of labor within 24 hours of rupture (principal); O70.0 First degree perineal laceration during delivery; Z37.0 Single live birth; Z3A.38 38 weeks gestation of pregnancy
CPT/HCPCS: 59025; 59050; 84112; 85025; 86850; 86900; 86901; 87426; 99218; J7120; G0378

== ENCOUNTER → 2023-05-23 | Outpatient (CLI) | payer OTHER, SELFPAY ==
[2023-05-23 10:21] LABS: Absolute Lymphocyte Count 1.04 X10^3/uL (0.83-4.51); Absolute Neutrophil Count 5.3 X10^3/uL (2.0-7.7); Basophil# 0.03 X10^3/uL; Basophil% 0.4 % (0-1); Hematocrit 36.5 % (37-47); Hemoglobin 12.5 g/dL (12.0-15.0); Lymphocyte # 1.04 X10^3/ul (0.83-4.51); Lymphocyte % 15.1 % (19-41); Mean Corp Hgb Conc 34.2 g/dL (32-36); Mean Corpuscular Hgb 33.2 pg (27.0-32.0); Mean Corpuscular Volume 97.1 fL (81-99); Mean Platelet Vol. 11.8 fl (6.2-12.0); Monocyte# 0.51 X10^3/uL; Monocyte% 7.4 % (0-10); NRBC Flagged by Analyzer 0 % (0-5); Neutrophil # 5.31 X10^3/uL (2.7-7.7); Neutrophil % 76.8 % (47-70); Platelet Count 273 K/mm3 (150-450); RBC Distribution Width SD 46.1 fl (35.1-43.9); Red Blood Count 3.76 M/mm3 (4.2-5.4); White Blood Count 6.9 K/mm3 (4.4-11.0)
[2023-05-23 11:51] LABS: HIV - WCH Non-Reactive (Nonreactive); Hepatitis B Surface Antigen Non-Reactive (Nonreactive); Hepatitis C Antibody Non-Reactive (Nonreactive); Rubella IgG Reactive (Nonreactive); Syphilis Antibodies Non-reactive
[2023-05-26 07:07] LABS: Chlamydia By Nucleic Acid AMP Negative (Negative); Gonococcus By Nucleic Acid AMP Negative (Negative)
== END | disposition home or self-care (01) ==
PROVIDERS: Referring Provider Advanced Practice Midwife; Visit Provider Advanced Practice Midwife
DX: Z34.90 Encounter for supervision of normal pregnancy, unspecified, unspecified trimester (principal)
CPT/HCPCS: 36415; 85025; 86703; 86762; 86780; 86803; 86850; 86900; 86901; 87086; 87088; 87340; 87491; 87591

== ENCOUNTER → 2023-07-31 | Outpatient (CLI) | payer SELFPAY, OTHER ==
--- NOTE | 2023-07-31 07:58 | US_ITS ---
STUDY: SECOND AND THIRD TRIMESTER OBSTETRICAL ULTRASOUND REASON FOR EXAM: Female, 37 years old anatomy US LMP: March 06, 2023. TECHNIQUE: Transabdominal and Transvaginal TECHNICAL QUALITY: Adequate. PRIOR ULTRASOUND: None. FINDINGS: There is a single intrauterine fetus. The fetus is in a cephalic presentation. There is demonstrated cardiac activity with a heart rate of 140 bpm. There is a normal amniotic fluid volume. The largest amniotic fluid pocket measures 6.2 cm cm. The amniotic fluid index (TARIQ) is within normal limits. The placenta is anterior in location and is not low lying. There are Grade 0 placental changes. The cervix measures 4.8 cm in length. The bilateral adnexal regions are normal. BIOMETRY: BPD: 5.2 cm: 21 weeks, 6 days HC: 19 cm: 21 weeks, 2 days AC: 16.2 cm: 21 weeks, 2 days FL: 3.5 cm: 21 weeks, 0 days CI: 80% FL/BPD: 67% FL/HC: FL/AC: 22% HC/AC: 1.17 age by current US: 21 weeks, 2 days. RANI by current US: December 09, 2023. Estimated weight: 413 grams, +/- 65 grams, 60 %. Age by LMP: 21 weeks, 0 days. RANI by LMP: December 11, 2023. ANATOMY: Gender: Female Cranium: Normal lateral ventricles. Normal choroid plexus. Normal cerebellum. Normal cisterna magna. Normal face, nose and lips. Chest: Normal 4-chamber heart. Abdomen/Pelvis: Normal diaphragm. Normal stomach. Normal abdominal wall. Normal cord insertion. Normal 3 vessel cord. Normal kidneys. Normal bladder. Spine: Normal cervical spine. Normal thoracic spine. Normal lumbar spine. Normal sacrum. Extremities: Normal bilateral upper extremities. Normal bilateral lower extremities. US/OB Anatomy w/ Transvaginal IMPRESSION: Single live uterine gestation with mean gestational age of 21 weeks and 2 days. Electronically Signed: [place] MD at 11:00 EST ,
== END | disposition home or self-care (01) ==
LOC: OPUS 07:57
PROVIDERS: PCP Family Medicine; Referring Provider Advanced Practice Midwife; Visit Provider Advanced Practice Midwife
DX: O26.899 Other specified pregnancy related conditions, unspecified trimester (principal); Z67.91 Unspecified blood type, Rh negative; Z3A.00 Weeks of gestation of pregnancy not specified
CPT/HCPCS: 76805; 76817

== ENCOUNTER → 2023-09-18 | Outpatient (CLI) | payer OTHER, SELFPAY ==
[2023-09-18 10:25] LABS: Absolute Lymphocyte Count 0.87 X10^3/uL (0.83-4.51); Absolute Neutrophil Count 7.3 X10^3/uL (2.0-7.7); Basophil# 0.02 X10^3/uL; Basophil% 0.2 % (0-1); Hematocrit 33.5 % (37-47); Hemoglobin 11.4 g/dL (12.0-15.0); Lymphocyte # 0.87 X10^3/ul (0.83-4.51); Mean Corpuscular Hgb 33.8 pg (27.0-32.0); Mean Corpuscular Volume 99.4 fL (81-99); Mean Platelet Vol. 11.3 fl (6.2-12.0); Monocyte# 0.52 X10^3/uL; NRBC Flagged by Analyzer 0 % (0-5); Neutrophil # 7.25 X10^3/uL (2.7-7.7); Neutrophil % 83.1 % (47-70); Platelet Count 233 K/mm3 (150-450); RBC Distribution Width CV 13.6 % (11.6-14.6); RBC Distribution Width SD 49.1 fl (35.1-43.9); Red Blood Count 3.37 M/mm3 (4.2-5.4); White Blood Count 8.7 K/mm3 (4.4-11.0)
[2023-09-18 10:29] LABS: Glucose Challenge Gest 1H 50g 174 mg/dL (70-140)
[2023-09-18 11:00] LABS: HIV - WCH Non-Reactive (Nonreactive); Syphilis Antibodies Non-reactive
== END | disposition home or self-care (01) ==
LOC: PAVLAB 09:32
PROVIDERS: PCP Family Medicine; Referring Provider Obstetrics & Gynecology; Visit Provider Obstetrics & Gynecology
DX: O09.90 Supervision of high risk pregnancy, unspecified, unspecified trimester (principal); Z13.1 Encounter for screening for diabetes mellitus; Z3A.00 Weeks of gestation of pregnancy not specified
CPT/HCPCS: 36415; 82950; 85025; 86703; 86780; 86850; 86900; 86901

== ENCOUNTER → 2023-11-19 | Outpatient (CLI) | payer SELFPAY, OTHER ==
--- NOTE | 2023-11-19 11:13 | US_ITS ---
STUDY: SECOND AND THIRD TRIMESTER OBSTETRICAL ULTRASOUND - LIMITED REASON FOR EXAM: Female, 38 years old GDM LMP: 03/06/2023 PRIOR ULTRASOUND: Prior study dated: 07/31/2023 TECHNIQUE: Transabdominal TECHNICAL QUALITY: Adequate. FINDINGS: There is a single intrauterine fetus. The fetus is in a cephalic presentation. There is demonstrated cardiac activity with a heart rate of 158 bpm. There is a normal amniotic fluid volume. The largest amniotic fluid pocket measures 7.4 cm. The amniotic fluid index (TARIQ) is 10.6 cm. The placenta is anterior in location and is not low lying. There are Grade 2 placental changes. The cervix is not visualized. BIOMETRY: BPD: 8.8 cm: 35 weeks, 4 days HC: 32.9 cm: 37 weeks, 2 days AC: 33.9 cm: 37 weeks, 6 days FL: 7.1 cm: 36 weeks, 2 days Age by LMP: 36 weeks, 6 days. RANI by LMP: 12/11/2023. age by current US: 36 weeks, 5 days. RANI by current US: 12/12/2023. Estimated weight: 3130 grams, +/- 470 grams, 63 percentile. US/OB Limited With Biometrics IMPRESSION: Single live intrauterine fetus in cephalic presentation with an estimated gestational age of 36 weeks and 5 days. The RANI is 12/12/2023. Electronically Signed: Rich Barger MD at 12:18 EDT ,
== END | disposition home or self-care (01) ==
LOC: US 11:08
PROVIDERS: PCP Family Medicine; Referring Provider Advanced Practice Midwife; Visit Provider Advanced Practice Midwife
DX: O24.419 Gestational diabetes mellitus in pregnancy, unspecified control (principal); Z3A.00 Weeks of gestation of pregnancy not specified
CPT/HCPCS: 76816

== ENCOUNTER → 2023-11-20 | Outpatient (CLI) | payer OTHER, SELFPAY ==
[2023-11-20 13:44] LABS: Protein, Urine (Random) 10.2 mg/dL (<11.9); Protein:Creat Ratio 325 mg/g CRE (0-200)
== END | disposition home or self-care (01) ==
LOC: LABSPEC 12:49
PROVIDERS: PCP Family Medicine; Referring Provider Advanced Practice Midwife; Visit Provider Advanced Practice Midwife
DX: O09.93 Supervision of high risk pregnancy, unspecified, third trimester (principal); Z3A.37 37 weeks gestation of pregnancy
CPT/HCPCS: 82570; 84156; 87081

== ENCOUNTER → 2023-11-21 | Outpatient (CLI) | payer OTHER, SELFPAY ==
[2023-11-21 13:44] LABS: Absolute Lymphocyte Count 0.91 X10^3/uL (0.83-4.51); Absolute Neutrophil Count 7.8 X10^3/uL (2.0-7.7); Basophil# 0.03 X10^3/uL; Basophil% 0.3 % (0-1); Hematocrit 37.4 % (37-47); Hemoglobin 12.6 g/dL (12.0-15.0); Lymphocyte # 0.91 X10^3/ul (0.83-4.51); Lymphocyte % 9.6 % (19-41); Mean Corp Hgb Conc 33.7 g/dL (32-36); Mean Corpuscular Hgb 34.2 pg (27.0-32.0); Mean Corpuscular Volume 101.6 fL (81-99); Mean Platelet Vol. 12.7 fl (6.2-12.0); Monocyte% 7.4 % (0-10); NRBC Flagged by Analyzer 0 % (0-5); Neutrophil # 7.77 X10^3/uL (2.7-7.7); Neutrophil % 82.2 % (47-70); Platelet Count 191 K/mm3 (150-450); RBC Distribution Width CV 13.9 % (11.6-14.6); RBC Distribution Width SD 52.1 fl (35.1-43.9); Red Blood Count 3.68 M/mm3 (4.2-5.4); White Blood Count 9.5 K/mm3 (4.4-11.0)
[2023-11-21 14:04] LABS: ALB/GLOB Ratio 0.6 RATIO (0.9-2.4); AST(SGOT) 19 U/L (15-37); Alanine Aminotransfer ALT/SGPT 19 U/L (13-56); Albumin, Serum 2.6 g/dL (3.2-5.0); Alkaline Phosphatase 130 U/L (45-117); Anion Gap 8 (5-15); BUN 11 mg/dL (7-18); BUN/Creat Ratio 17.2 RATIO (10-20); Calcium,Total 9.9 mg/dL (8.5-10.1); Chloride 104 mmol/L (98-107); Creatinine, Serum 0.64 mg/dL (0.55-1.02); EST Glomerular Filtration Rate 112 mL/min (>60); Est Glom Filt Rate - Afr Amer 135 mL/min (>60); Glucose 83 mg/dL (74-106); Potassium 3.7 mmol/L (3.5-5.1); Protein, Total 6.6 g/dL (6.4-8.2); Sodium Level 136 mmol/L (136-145)
[2023-11-21 14:12] LABS: Protein, Urine (Random) < 6.0 mg/dL (<11.9)
== END | disposition home or self-care (01) ==
LOC: PAVLAB 13:28
PROVIDERS: PCP Family Medicine; Referring Provider Advanced Practice Midwife; Visit Provider Advanced Practice Midwife
DX: O12.10 Gestational proteinuria, unspecified trimester (principal); Z3A.00 Weeks of gestation of pregnancy not specified
CPT/HCPCS: 36415; 80053; 82570; 84156; 85025

== ENCOUNTER 2023-12-03 01:11 | Inpatient (IN) | payer SELFPAY, OTHER ==
[2023-12-03] VITALS (18 sets, daily range): BP systolic 100–139; BP diastolic 60–88; PULSE 63–89; RESP 16–20; TEMP 36.4–37.5; O2SAT 96–99; BMI 27.3
[2023-12-03] MEDS: Lactated Ringers 1,000 ML 999 ML IV (01:20)
[2023-12-03] MEDS: Oxytocin 15 Units/NS 250ml 15 UNITS/250 ML IV.SOLN 334 UNITS IV (01:30)
--- NOTE | 2023-12-03 01:39 | HP.PCM.OB_ITS ---
HPI - General General Date of Admission: 12/03/23 HPI Narrative OSWALDO BERMUDEZ, is a 38 F who presents IAL delivers precipitiously was 8 cm upon presentation and delivered within 30 minutes of presenting. cat II tracing with periodic variables upon admit. labor started 3 1/2 hours ago at home and SROM clear fluid 1 hour ago Maternal Data Information RANI Calculator Estimated Delivery Date Method Current WG Current Estimate 12/11/23 LMP (Certain) 38w 6d PFSH PFSH Medical History Abnormal glucose complicating childbirth SROM (spontaneous rupture of membranes) Home Medications ?Medication ?Instructions ?Recorded ?Last Taken ?Type vits,calcium no.78-iron 1 tab PO DAILY 12/14/18 01/28/21 History fumarate-folic acid 29 mg-1 mg tablet blood-glucose meter #1 ea 09/30/23 Unknown Rx blood sugar diagnostic (Blood #120 ea 10/14/23 Unknown Rx Glucose Test strips) lancets #200 ea 10/14/23 Unknown Rx Allergy/AdvReac Type Severity Reaction Status Date / Time No Known Allergies Allergy Verified 12/03/23 00:54 Family History Other Propionic acidemia Surgical History [place] teeth extracted Social History adopted: No household members: spouse and children number of children: 2 current occupational status: unemployed pets and animals: No history of recent travel: No sexually active: Yes Smoking Status: Never smoker alcohol intake: never substance use type: does not use well-balanced diet: daily or most days caffeine: No eating out: rarely or never during the past year weight has: remained stable what type of physical activity do you participate in: none kiet/yarsanism: [employer] seatbelt use: sometimes do you feel safe at home: Yes additional social history: Meir History 3 Elective abortions Hx Para 2 Spontaneous abortions Hx # Term Pregnancies Ectopic pregnancies Hx # Pregnancies Multiple births # of living children 2 Past Pregnancies Del. Date Name GA/Weeks Outcome Route Bth Weight Gen Labor Lgth Anesthesia Del Locatn Provider FOB 12/14/18 Charlie 40 live - full term 6#13oz Male 13 HR none [facility] Elvin- for Gurdeep [employer] Meir 01/29/21 Jorge Luis 38 live - full term 8#3oz Male 12 hr epidu ral [facility] Tiago Worley Visit Details Expected Delivery Route/Plan Labor Preferences- CB/BF classes: no labor support person: Meir labor intervention preferences: unmedicated pain management options preferred: limited cut cord/dad catch: maybe : yes, has not had success in past PP control planned: discussed discussed possible routes of delivery and associated risks: [] special requests: [] Plans Covid status: [] Flu vaccine: [] Tdap vaccine: declines Rhogam: not given LARC form signed: yes Problem list reviewed and updated with the most current plan of care details and appropriate orders placed. Relevant counseling for the gestational age provided. Continue routine care and follow up unless otherwise noted in visit notes/problem list details OB Flowsheet Initial Weight: Not Recorded Date -?-?-?-?-?-?-?-?-?-?-?-?- EGA Weight BP Urine Prot -?-?-?-?-?-?-?-?-?-?-?-?- Glucose FHR FuHt Pres Dilation -?-?-?-?-?-?-?-?-?-?-?-?- Effaced St Visit Note 05/23/23 -?-?-?-?-?-?-?-?-?-?-?-?- 11w 1d 141 lb 8 oz 112/77 112/77 -?-?-?-?-?-?-?-?-?-?-?-?- 160 -?-?-?-?-?-?-?-?-?-?-?-?- kw-CRL cons with dates. planning most visits in [facility]. doing well. no concerns. declines NIPT 06/19/23 -?-?-?-?-?-?-?-?-?-?-?-?- 15w 0d 145 lb 101/68 Negative -?-?-?-?-?-?-?-?-?-?-?-?- Negative 160 -?-?-?-?-?-?-?-?-?-?-?-?- KW-no vb/crampin g. possible flutters. travel precautions going to [place]. will get anatomy scan when she returns. 07/31/23 -?-?-?-?-?-?-?-?-?-?-?-?- 21w 0d 150 lb 6 oz 115/81 Nega tive -?-?-?-?-?-?-?-?-?-?-?-?- Negative 150 -?-?-?-?-?-?-?-?-?-?-?-?- JV- anatomy scan normal today. (having a girl but wants it to be a surprise for the fam) glucola given and needs to return to [place] in 2 months. will see surveying or spatial science technician in [facility] in meantime. 08/26/23 -?-?-?-?-?-?--?-?-?-?-?-?- 24w 5d 154 lb 104/71 Negative -?-?-?-?-?-?-?-?-?-?-?-?- Negative 142 24 -?-?-?-?-?-?-?-?-?-?-?-?- KW-no vb/ctx. go od fm. 28 week labs ordered last visit. 09/18/23 -?-?-?-?-?-?-?-?-?-?-?-?- 28w 0d 158 lb 2 oz 110/74 Nega tive -?-?-?-?-?-?-?-?-?-?-?-?- Negative 158 28 -?-?-?-?-?-?-?-?-?-?-?-?- MH-No VB, LOF. G ood FM. Needs 3 hr GTT and ordered. Larc. 09/30/23 -?-?-?-?-?-?-?-?-?-?-?-?- 29w 5d 158 lb 8 oz 110/74 Trac e -?-?-?-?-?-?-?-?-?-?-?-?- Negative 150 30 -?-?-?-?-?-?-?-?-?-?-?-?- KW- no vb/lof/ct x. good fm. 1 hour gct was 174. she decided to start testing BS instead of doing 3 hour. information and ranges given today. to bring readings in next visit. 10/14/23 -?-?-?-?-?-?-?-?-?-?-?-?- 31w 5d 158 lb 103/67 1+ -?-?-?-?-?-?-?-?-?-?-?-?- Negative 155 31 -?-?-?-?-?-?-?-?-?-?-?-?- KW- no vb/lof/ct x. good fm. blood sugars reviewed and doing well. growth US ordered. KW- no vb/lof/ctx. good fm. blood sugars reviewed and doing well. growth US ordered. denies pre e sx. 10/28/23 -?-?-?-?-?-?-?-?-?-?-?-?- 33w 5d 159 lb 6 oz 93/64 -?-?-?-?-?-?-?-?-?-?-?-?- 150 33 -?-?-?-?-?-?-?-?-?-?-?-?- KW- no vb/lof/ct x. good fm. Doing well with blood sugars. decrease to BID testing Has growth US scheduled. LARC done 11/20/23 -?-?-?-?-?-?-?-?-?-?-?-?- 37w 0d 163 lb 112/77 1+ -?-?-?-?-?-?-?-?-?-?-?-?- Negative 154 36 Cephalic 2 -?-?-?-?-?-?-?-?-?-?-?-?- 60 -3 KW- no vb/ lof/ctx. good fm. denies pre e sx-urine sent-likely dehydration. Growth US reviewed. 63% and TARIQ 10.1. encouraged Gurdeep appt for AFIs. Encouraged to see physicians in rotation. 11/28/23 -?-?-?-?-?-?-?-?-?-?-?-?- 38w 1d 161 lb 4 oz 114/76 Nega tive -?-?-?-?-?-?-?-?-?-?-?-?- Negative 142 Cephalic 2 -?-?-?-?--?-?-?-?-?-?-?-?- 80 JV- tariq today is 10.7. Glucose log normal. plan 40 week delivery NST FHR Rate Baby A Baseline: 140 Variability:: Moderate Accelerations:: None Decelerations:: Variable NST Reactive:: Yes FHR Category:: Category II Uterine Activity:: q2-3 ROS Constitutional Constitutional: Reports systems reviewed and no addt'l complaints, except as documented ENT HEENT: Reports systems reviewed and no addt'l complaints, except as documented Cardiovascular Cardiovascular: Reports systems reviewed and no addt'l complaints, except as documented Respiratory/Chest Respiratory/Chest: Reports systems reviewed and no addt'l complaints, except as documented Gastrointestinal Gastrointestinal: Reports systems reviewed and no addt'l complaints, except as documented and nausea; Denies abdominal pain Genitourinary Genitourinary: Reports systems reviewed and no addt'l complaints, except as documented, contractions Details: present and frequency (regular ) and movement Details: present Musculoskeletal Musculoskeletal: Reports systems reviewed and no addt'l complaints, except as documented Integumentary Integumentary: Reports as per HPI Neurologic Neurologic: Reports systems reviewed and no addt'l complaints, except as documented Endocrine Endocrinology: Reports systems reviewed and no addt'l complaints, except as documented Vital Signs Vital Signs Vital Signs: 12/03/23 01:01 12/03/23 01:01 12/03/23 01:01 Temperature Temperature Source Pulse Rate 63 Respiratory Rate Blood Pressure 121/61 H BP Systolic 121 BP Diastolic 61 Pulse Ox 98 12/03/23 01:01 12/03/23 01:01 12/03/23 01:01 Temperature 97.6 F L Temperature Source Temporal Pulse Rate Respiratory Rate 18 Blood Pressure BP Systolic BP Diastolic Pulse Ox 12/03/23 01:35 12/03/23 01:35 12/03/23 01:37 Temperature Temperature Source Pulse Rate 71 Respiratory Rate Blood Pressure 125/72 H BP Systolic 125 BP Diastolic 72 Pulse Ox 99 12/03/23 01:37 Temperature Temperature Source Pulse Rate 72 Respiratory Rate Blood Pressure BP Systolic BP Diastolic Pulse Ox Weight Weight: 159 lb 6.4 oz Body Mass Index (BMI) 27.3 Physical Exam Const alert, oriented x3 and healthy appearing Constitutional Narrative: uncomfortable with contractions HEENT normocephalic and moist oral mucous membranes Head and Scalp: atraumatic Neck full ROM, no lymphadenopathy, supple and thyroid normal General: trachea midline Thyroid: thyroid normal Lymph Lymphatic: no lymphadenopathy noted Chest inspection of chest normal Resp normal respiratory effort Cardio regular rate GI normal to inspection, nondistended, normoactive bowel sounds, soft to palpation and non-tender Inspection: gravid external exam normal Bimanual Exam - Vag & Uterus: uterus non-tender Manual OB Exam: estimated gestational size appropriate, presentation ce phalic, dilated, effaced and station Extremity normal to inspection General Extremity: Negative for edema Skin no rashes or lesions noted Neuro deep tendon reflexes 2+ bilaterally Motor Exam: strength 5/5 throughout and clonus absent Psych mental status grossly normal Labs Labs Labs: Blood Type A NEGATIVE Antibody Screen NEGATIVE Hct 37.4 % (37-47) Hgb 12.6 g/dL (12.0-15.0) Obstetrics Ultrasound Syphilis Total Ab Non-reactive Rubella IgG Antibody Reactive (Nonreactive) Hep Bs Antigen Non-Reactive (Nonreactive) Hepatitis C Antibody Non-Reactive (Nonreactive) Hepatitis C Ab (EIA) <0.1 s/co ratio (0.0-0.9) Chlamydia DNA (SUMAN) Negative (Negative) N.gonorrhoeae DNA (SUMAN) Negative (Negative) HIV 1&2 Antibody Non-Reactive (Nonreactive) Glucose 1 Hr 50 gm 174 mg/dL (70-140) H Rhogam given: No Assessment & Plan (1) Proteinuria affecting : COMMENT: bps/pre e labs normal. discussed with SM-repeat at 11/27 appt encourage home bps (2) TARIQ (amniotic fluid index) decreased: COMMENT: TARIQ 10.1 at 36 week US (3) Gestational diabetes mellitus (GDM) affecting , antepartum: COMMENT: one hour 174. decided to test BSs instead of doing 3 hour. plan 36 week growth US (63%) (4) Supervision of high-risk : COMMENT: PRR, , RANI 12/11/23 Jorge Luis Baker Meir (5) Rh negative state in antepartum period: COMMENT: NO Rhogam:has not received rhogam in past due to also A neg and copy scanned to her chart. (6) : QUALIFIERS: Weeks of gestation: 37 weeks Qualified Code(s): Z3A.37 - 37 weeks gestation of COMMENT: gbs neg, nl anatomy, Denies genetic & carrier testing (7) Vaginal delivery: COMMENT: OLIVA IAL precip delivery girl Jovanna 38 PLAN: Plan admit and delivered precip
--- NOTE | 2023-12-03 01:45 | EX.PCM.OBRPT ---
Assessment & Plan (1) Rh negative state in antepartum period: COMMENT: NO Rhogam:has not received rhogam in past due to also A neg and copy scanned to her chart. (2) : QUALIFIERS: Weeks of gestation: 37 weeks Qualified Code(s): Z3A.37 - 37 weeks gestation of COMMENT: gbs neg, nl anatomy, Denies genetic & carrier testing (3) Gestational diabetes mellitus (GDM) affecting , antepartum: COMMENT: one hour 174. decided to test BSs instead of doing 3 hour. plan 36 week growth US (63%) (4) Supervision of high-risk : COMMENT: PRR, , RANI 12/11/23 PC Jorge Luis Guerra Meir (5) TARIQ (amniotic fluid index) decreased: COMMENT: TARIQ 10.1 at 36 week US (6) Proteinuria affecting : COMMENT: bps/pre e labs normal. discussed with SM-repeat at 11/27 appt encourage home bps (7) Vaginal delivery: COMMENT: IAL precip delivery girl Jovanna 38 (8) SROM (spontaneous rupture of membranes): Maternal Data Information RANI Calculator Estimated Delivery Date Method Current WG Current Estimate 12/11/23 LMP (Certain) 38w 6d Vaginal Delivery Operative Information Date of Procedure: 12/03/23 Pre-Operative Diagnosis: see a/p diagnoses Post-Operative Diagnosis: same Surgery / Procedure Performed: Spontaneous Vaginal Delivery Type of Anesthesia: Epidural Special Medications: none Estimated Blood Loss: 200 Fluids Replaced: crystalloid Findings Description of Procedure: Patient began pushing and delivered the head in the NIKOLAS presentation. The head was delivered atraumatically. The anterior and posterior shoulders delivered without complication followed by the rest of the infant and the was placed on the maternal abdomen. Delayed cord clamping was employed for approximately 60 seconds. Cord was clamped and cut and gentle traction was applied to the cord and the placenta delivered spontaneously immediately following it was noted to be intact with three-vessel cord. The perineum and vagina were inspected and no laceration noted. EBL was 200 cc. Patient and tolerated delivery well. Amniotic Fluid Description: Clear ( then terminal mec noted) Placental Delivery Description: Spontaneous Placenta Disposition: [facility] Cord Vessel Description: 3 Vessels Cord Entanglement: None Delayed Cord Clamping: Yes Post Vaginal Delivery Medications Given After Delivery: IV Pitocin Episiotomy Description: None Complication Complications: None Procedures Urinary/Genital [id number]: [id number] Vaginal Delivery [facility]
--- NOTE | 2023-12-03 01:46 | DCINST_ITS ---
Discharge Instructions Diet Discharge Diet: No restrictions Activity Discharge Activity: Return to Normal Activity, May Not Drive (while taking narcotic pain medications.) and May Shower May resume sexual activity in: 4-6 weeks Dressing / Incision Call your doctor if your incision/area has: Continuous Slow Oozing, Sudden Increased Bleeding, Increased Pain/ Swelling, Increased Redness and Foul Smelling Discharge Follow Up Care Please Follow Up With: Chastity Oconnor MD When: Call [phone] to make an appointment with your doctor in 6 weeks. If you had elevated blood pressure or 4th degree laceration, you will need to be seen in 2 weeks. Test Results: Test results from this visit will be discussed in further detail at your follow- up appointment, if applicable. Discharge Plan Admission Admit Date/Time: 12/03/23 01:11 Attending Provider: Chastity Oconnor Primary Care Provider: Peter Bear Discharge Orders/Prescriptions Prescriptions: No Action (DME) blood-glucose meter Misc See Rx Instructions .MEDSUPPLY Qty: 1 0RF Rx Instructions: As directed- Test fasting and 2 hours after meals (DME) lancets Misc See Rx Instructions .MEDSUPPLY Qty: 200 5RF Rx Instructions: As directed-fasting & 2 hr post meals (DME) Blood Glucose Test Strip See Rx Instructions .MEDSUPPLY Qty: 120 5RF Rx Instructions: As directed-fasting & 2 hr post meals vit,[id number] 1 TABLET tablet 1 tab PO DAILY Referrals / Follow Up: Peter Bear DO [Primary Care Provider] - Disposition Disposition (needs filled in before D/C Order can be placed): Home, Self Care
[2023-12-03 01:51] LABS: Absolute Lymphocyte Count 1.21 X10^3/uL (0.83-4.51); Absolute Neutrophil Count 7.5 X10^3/uL (2.0-7.7); Basophil# 0.03 X10^3/uL; Basophil% 0.3 % (0-1); Hematocrit 39.3 % (37-47); Hemoglobin 13.3 g/dL (12.0-15.0); Lymphocyte # 1.21 X10^3/ul (0.83-4.51); Lymphocyte % 12.6 % (19-41); Mean Corp Hgb Conc 33.8 g/dL (32-36); Mean Corpuscular Hgb 34.3 pg (27.0-32.0); Mean Corpuscular Volume 101.3 fL (81-99); Mean Platelet Vol. 13.6 fl (6.2-12.0); Monocyte# 0.83 X10^3/uL; Monocyte% 8.6 % (0-10); NRBC Flagged by Analyzer 0 % (0-5); Neutrophil # 7.52 X10^3/uL (2.7-7.7); Neutrophil % 78.1 % (47-70); Platelet Count 194 K/mm3 (150-450); RBC Distribution Width CV 14.1 % (11.6-14.6); RBC Distribution Width SD 51.8 fl (35.1-43.9); Red Blood Count 3.88 M/mm3 (4.2-5.4); White Blood Count 9.6 K/mm3 (4.4-11.0)
[2023-12-03] MEDS: Oxytocin 15 Units/NS 250ml 15 UNITS/250 ML IV.SOLN 83 UNITS IV (02:03)
[2023-12-03 02:27] LABS: Syphilis Antibodies Non-reactive
[2023-12-03 02:50] LABS: Bedside Glucose 100 mg/dL (74-106)
[2023-12-03 02:50] LABS: Bedside Glucose 103 mg/dL (74-106)
[2023-12-03] MEDS: Naproxen 500 MG Tablet PO (02:59)
[2023-12-03] MEDS: 0.9% Saline Lock 10 ML Syringe IV (05:05)
--- NOTE | 2023-12-03 07:32 | NURSING ---
bedside report given to Tristen Ro RN who is assuming care of pt at this time
[2023-12-04 04:50] VITALS: BP 100/72; PULSE 67; RESP 16; TEMP 36.3; O2SAT 97
[2023-12-04 05:49] LABS: Bedside Glucose 79 mg/dL (74-106)
[2023-12-04 07:48] VITALS: BP 115/91; PULSE 72; RESP 17; TEMP 36.5; O2SAT 97
--- NOTE | 2023-12-04 09:19 | PCM.PN.OB ---
Subjective Subjective Patient doing well without complaints. Tolerating PO. Ambulating and voiding without difficulty. Feeding well. Denies chest pain, shortness of breath, calf pain/swelling, fevers, chills, lightheadedness. Objective Data Objective Data Vital Signs: Vital Signs Temp Pulse Resp BP Pulse Ox O2 Del Method 97.7 F L 72 17 115/91 H 97 Room Air 12/04/23 07:48 12/04/23 07:48 12/04/23 07:48 12/04/23 07:48 12/04/23 07:48 12/04/23 07:48 Oxygen Delivery Method Room Air Weight: 159 lb 6.4 oz Body Mass Index (BMI) 27.3 Intake & Output: Intake and Output for Last 24 Hours 12/02/23 12/03/23 12/04/23 23:59 23:59 23:59 Intake Total 583.5 / 583.5 Output Total 850 / 850 Balance -266.5 / -266.5 Lab / Micro Data 12/03/23 01:20 Labs: Laboratory Results - last 24 hr 12/04/23 05:30: POC Glucose 79 ROS Constitutional Constitutional: Denies chills, fatigue, fever(s), poor appetite or weakness Eyes Eyes: Denies blurry vision, change in vision, seeing flashes or spots in vision ENT HEENT: Denies dizziness, headache(s), loss taste/smell or sore throat Cardiovascular Cardiovascular: Denies chest pain, dizziness, dyspnea, irregular heart rhythm, palpitations or rapid heart rate Respiratory/Chest Respiratory/Chest: Denies chest tightness, cough, dyspnea or breast pain Gastrointestinal Gastrointestinal: Denies abdominal pain, constipation or vomiting Genitourinary Genitourinary: Denies dysuria or flank pain Musculoskeletal Musculoskeletal: Denies difficulty walking, joint pain, limited range of motion or numbness Neurologic Neurologic: Denies abnormal movements, abnormal speech, dizziness, numbness, seizure-like activity or syncope Psychiatric Psychiatric: Denies anxiety, behavioral changes, change in appetite, confusion, depression or suicidal thoughts Physical Exam Const alert, oriented x3 and no apparent distress General Appearance: cooperative and comfortable Resp normal respiratory effort Cardio regular rate GI normal to inspection, nondistended, normoactive bowel sounds GI Narrative: uterus is firm below umbilicus Palpation: soft Back/Spine no CVA tenderness and thoraco-lumbar ROM normal Extremity normal to inspection, no clubbing, cyanosis or edema, no calf tenderness and no pedal edema Psych mental status grossly normal, thought process normal, cooperative, affect normal, speech normal, activity/motor behavior normal, denies homicidal ideation and denies suicidal ideation Assessment & Plan (1) Vaginal delivery: COMMENT: OLIVA OLMOS IAL precip delivery girl Jovanna 38 (2) Gestational diabetes mellitus (GDM) affecting , antepartum: COMMENT: one hour 174. decided to test BSs instead of doing 3 hour. plan 36 week growth US (63%) (3) Rh negative state in antepartum period: COMMENT: NO Rhogam:has not received rhogam in past due to also A neg and copy scanned to her chart. PLAN: Plan s/p PPD # 1 1. routine post delivery care 2. bottle feeding- support given 3. rh neg- s/p rhogam 4. rubella immune
== END 2023-12-04 10:20 | disposition home or self-care (01) | DRG 807 ==
LOC: WPOUT 01:23 → WP 01:23
PROVIDERS: Admitting Provider Obstetrics & Gynecology; PCP Family Medicine; Referring Provider Obstetrics & Gynecology; Visit Provider Obstetrics & Gynecology
DX: O24.429 Gestational diabetes mellitus in childbirth, unspecified control (principal); Z37.0 Single live birth; O62.3 Precipitate labor; Z3A.37 37 weeks gestation of pregnancy
CPT/HCPCS: 82962; 85025; 86780; 86850; 86900; 86901; 99221; J7120; A4216; G0378